=== PATIENT | female | born 1985 | race Caucasian/White ===

== ENCOUNTER 2020-02-09 10:48 | Emergency (ER) | payer MEDICAID ==
[~2020-02-09] VITALS: Ht 167.6 cm; Wt 61.0 kg
[2020-02-09 11:03] VITALS: BP 105/36
== END 2020-02-09 12:58 | disposition home or self-care (01) ==
LOC: ER 10:48
DX: S52.511A Displaced fracture of right radial styloid process, initial encounter for closed fracture (principal); Z98.890 Other specified postprocedural states; W01.0XXA Fall on same level from slipping, tripping and stumbling without subsequent striking against object, initial encounter; Y93.89 Activity, other specified; Y92.018 Other place in single-family (private) house as the place of occurrence of the external cause
CPT/HCPCS: 29125; 73110; 99283; A4565

== ENCOUNTER 2020-08-07 19:22 | Emergency (ER) | payer MEDICAID ==
[~2020-08-07] VITALS: Ht 167.6 cm; Wt 64.0 kg
[2020-08-07] MEDS ORDERED: SODIUM CHLORIDE 0.9% 1,000 ML IV ONE (20:00)
[2020-08-07 20:22] LABS: BASOPHILS % 0.4 % (0.0-2.0); EOSINOPHILS % 0.9 % (0.0-5.0); HEMATOCRIT. 37.4 % (36.0-48.0); HEMOGLOBIN. 12.6 g/dL (12.0-16.0); LYMPHOCYTES % 29.8 % (20.0-50.0); MEAN CORPUSCULAR HEMOGLOBIN 33.9 pg (28.0-32.0); MEAN CORPUSCULAR VOLUME 100.9 fL (81.0-99.0); MEAN PLATELET VOLUME 7.6 fl (7.4-10.4); MONOCYTES % 4.3 % (2.0-8.0); NEUTROPHILS % 64.6 % (40.0-76.0); PLATELET 211 x1000/uL (130-400); RED CELL DISTRIBUTION WIDTH 17.1 % (11.6-14.6)
[2020-08-07 20:31] LABS: CHLORIDE 111 mEq/L (98-107); HCG SCREEN NEGATIVE
[2020-08-07 20:42] LABS: ETHANOL BLOOD 297 mg/dL
[2020-08-07 20:50] VITALS: BP 112/78
[2020-08-07 21:00] LABS: CLARITY URINE CLEAR (CLEAR); COLOR URINE YELLOW (YELLOW); KETONES URINE NEGATIVE (NEGATIVE); LEUKOCYTE ESTERASE URINE NEGATIVE (NEGATIVE); NITRITE URINE NEGATIVE (NEGATIVE); OCCULT BLOOD URINE 3+ (NEGATIVE); PROTEIN URINE NEGATIVE (NEGATIVE); SPECIFIC GRAVITY URINE 1.006 (1.005-1.030); UROBILINOGEN URINE 0.2 E.U./dL (0.2-1.0)
[2020-08-07 21:15] LABS: *AMPHETAMINES SCREEN URINE NEGATIVE (NEGATIVE); *BARBITURATES SCREEN URINE NEGATIVE (NEGATIVE); *BENZODIAZEPINES SCREEN URINE NEGATIVE (NEGATIVE); *COCAINE SCREEN URINE NEGATIVE (NEGATIVE); METHADONE URINE SCREEN NEGATIVE (NEGATIVE); OPIATES URINE SCREEN NEGATIVE (NEGATIVE); PHENCYCLIDINE URINE SCREEN NEGATIVE (NEGATIVE)
[2020-08-07 21:16] LABS: CANNABINOID URINE SCREEN NEGATIVE (NEGATIVE)
== END 2020-08-07 20:50 | disposition left against medical advice (07) ==
LOC: ER 19:32
DX: R55 Syncope and collapse (principal); R41.82 Altered mental status, unspecified; R21 Rash and other nonspecific skin eruption; F10.129 Alcohol abuse with intoxication, unspecified; Y90.9 Presence of alcohol in blood, level not specified
CPT/HCPCS: 36415; 80053; 80305; 80320; 81003; 84484; 84703; 85025; 85379; 99283; J7030; G0480

== ENCOUNTER 2020-08-20 10:52 | Emergency (ER) | payer MEDICAID ==
[~2020-08-20] VITALS: Ht 165.1 cm; Wt 55.0 kg
[2020-08-20] MEDS ORDERED: ACETAMINOPHEN 325MG TABLET PO STA (11:31)
[2020-08-20] MEDS ORDERED: SODIUM CHLORIDE 0.9% 1,000 ML IV ONE ×2 (11:45→13:15)
[2020-08-20 11:48] LABS: BASOPHILS % 1.5 % (0.0-2.0); EOSINOPHILS % 1.2 % (0.0-5.0); HEMATOCRIT. 32.7 % (36.0-48.0); HEMOGLOBIN. 11.2 g/dL (12.0-16.0); LYMPHOCYTES % 28.4 % (20.0-50.0); MEAN PLATELET VOLUME 7.4 fl (7.4-10.4); MONOCYTES % 7.3 % (2.0-8.0); NEUTROPHILS % 61.6 % (40.0-76.0); PLATELET 324 x1000/uL (130-400); RED CELL DISTRIBUTION WIDTH 15.5 % (11.6-14.6)
[2020-08-20 11:55] LABS: CHLORIDE 109 mEq/L (98-107)
[2020-08-20 12:04] LABS: CLARITY URINE CLEAR (CLEAR); COLOR URINE YELLOW (YELLOW); KETONES URINE NEGATIVE (NEGATIVE); LEUKOCYTE ESTERASE URINE NEGATIVE (NEGATIVE); NITRITE URINE NEGATIVE (NEGATIVE); OCCULT BLOOD URINE 2+ (NEGATIVE); PROTEIN URINE TRACE (NEGATIVE); SPECIFIC GRAVITY URINE 1.011 (1.005-1.030); UROBILINOGEN URINE 0.2 E.U./dL (0.2-1.0)
[2020-08-20 12:05] LABS: B-HCG QUANTITATIVE < 1 mIU/mL (<3)
[2020-08-20] MEDS ORDERED: IBUP-2028 MT (14:17)
[2020-08-20] MEDS ORDERED: NITR-87 MT (14:17)
[2020-08-20 15:15] VITALS: BP 115/82
== END 2020-08-20 15:19 | disposition home or self-care (01) ==
LOC: ER 11:00
DX: N39.0 Urinary tract infection, site not specified (principal); R53.1 Weakness; Z63.4 Disappearance and death of family member; Z87.59 Personal history of other complications of pregnancy, childbirth and the puerperium
CPT/HCPCS: 36415; 76830; 76856; 80053; 81003; 84702; 85025; 86850; 86900; 86901; 93005; 96360; 96361; 99285; J7030

== ENCOUNTER 2020-08-26 08:32 | Emergency (ER) | payer MEDICAID ==
[~2020-08-26] VITALS: Ht 167.6 cm; Wt 68.0 kg
[~2020-08-26 08:32] MED LIST: IBUP-2028 MT; NITR-87 MT
[2020-08-26] MEDS ORDERED: ONDANSETRON HCL 4MG/2ML INJ IV STA (08:55)
[2020-08-26] MEDS ORDERED: SODIUM CHLORIDE 0.9% 1,000 ML IV ONE ×2 (09:00→12:00)
[2020-08-26 09:22] LABS: BASOPHILS % 0.3 % (0.0-2.0); EOSINOPHILS % 1.1 % (0.0-5.0); HEMOGLOBIN. 11.4 g/dL (12.0-16.0); LYMPHOCYTES % 28.8 % (20.0-50.0); MEAN CORPUSCULAR HEMOGLOBIN 34.1 pg (28.0-32.0); MEAN CORPUSCULAR VOLUME 101.7 fL (81.0-99.0); MEAN PLATELET VOLUME 7.4 fl (7.4-10.4); MONOCYTES % 4.4 % (2.0-8.0); NEUTROPHILS % 65.4 % (40.0-76.0); PLATELET 239 x1000/uL (130-400); RED BLOOD CELL COUNT 3.34 mill/uL (4.2-5.4); RED CELL DISTRIBUTION WIDTH 14.8 % (11.6-14.6)
[2020-08-26 09:23] LABS: CLARITY URINE CLEAR (CLEAR); COLOR URINE DARK YELLOW (YELLOW); KETONES URINE TRACE (NEGATIVE); LEUKOCYTE ESTERASE URINE TRACE (NEGATIVE); NITRITE URINE NEGATIVE (NEGATIVE); OCCULT BLOOD URINE 3+ (NEGATIVE); PROTEIN URINE 2+ (NEGATIVE); SPECIFIC GRAVITY URINE 1.026 (1.005-1.030)
[2020-08-26 09:28] LABS: CHLORIDE 107 mEq/L (98-107)
[2020-08-26 09:33] LABS: ETHANOL BLOOD 217 mg/dL
[2020-08-26 10:05] LABS: *AMPHETAMINES SCREEN URINE NEGATIVE (NEGATIVE); *BARBITURATES SCREEN URINE NEGATIVE (NEGATIVE); *BENZODIAZEPINES SCREEN URINE NEGATIVE (NEGATIVE); *COCAINE SCREEN URINE NEGATIVE (NEGATIVE); METHADONE URINE SCREEN NEGATIVE (NEGATIVE); OPIATES URINE SCREEN NEGATIVE (NEGATIVE)
[2020-08-26 10:06] LABS: CANNABINOID URINE SCREEN NEGATIVE (NEGATIVE); PHENCYCLIDINE URINE SCREEN NEGATIVE (NEGATIVE)
[2020-08-26] MEDS ORDERED: POTASSIUM CHLORIDE 20MEQ TABLET SR PO ONE (10:45)
[2020-08-26 13:15] VITALS: BP 100/50
== END 2020-08-26 13:16 | disposition home or self-care (01) ==
LOC: ER 08:36
DX: R55 Syncope and collapse (principal); E87.6 Hypokalemia; F17.290 Nicotine dependence, other tobacco product, uncomplicated
CPT/HCPCS: 36415; 80053; 80305; 80320; 81003; 85025; 93005; 96361; 96374; 99284; J2405; J7030; G0480

== ENCOUNTER 2020-10-12 21:48 | Emergency (ER) | payer MEDICAID ==
[~2020-10-12] VITALS: Ht 172.7 cm; Wt 59.0 kg
[~2020-10-12 21:48] MED LIST changes: +ACET650T37 MT; +CEPH500C2 MT; +IBUP-2029 MT; +POTA-9 MT
[2020-10-13] MEDS ORDERED: IBUP-2029 MT (03:52)
[2020-10-13] MEDS ORDERED: KETOROLAC 60MG/2ML VIAL IM ONE (04:00)
[2020-10-13 04:27] VITALS: BP 128/80
== END 2020-10-13 04:35 | disposition home or self-care (01) ==
LOC: ER 21:48
DX: S22.31XA Fracture of one rib, right side, initial encounter for closed fracture (principal); G62.9 Polyneuropathy, unspecified; X58.XXXA Exposure to other specified factors, initial encounter; Y93.89 Activity, other specified; Y92.488 Other paved roadways as the place of occurrence of the external cause
CPT/HCPCS: 96372; 99283; J1885

== ENCOUNTER 2021-11-07 10:08 | Emergency (ER) | payer MEDICAID ==
[~2021-11-07] VITALS: Ht 167.6 cm; Wt 57.0 kg
[~2021-11-07 10:08] MED LIST changes: +ACET-3163 MT; -ACET650T37 MT; +POTA-202 MT; -POTA-9 MT
[2021-11-07] MEDS ORDERED: IBUPROFEN 600MG TABLET PO ONE (10:45)
[2021-11-07 12:27] VITALS: BP 147/81
[2021-11-07] MEDS ORDERED: IBUP-2029 MT (14:25)
== END 2021-11-07 15:16 | disposition home or self-care (01) ==
LOC: ER 10:08
DX: S09.8XXA Other specified injuries of head, initial encounter (principal); S05.11XA Contusion of eyeball and orbital tissues, right eye, initial encounter; Y04.0XXA Assault by unarmed brawl or fight, initial encounter; Y93.89 Activity, other specified; Y92.488 Other paved roadways as the place of occurrence of the external cause
CPT/HCPCS: 70486; 99284

== ENCOUNTER 2021-12-26 16:59 | Emergency (ER) | payer MEDICAID ==
[~2021-12-26] VITALS: Ht 162.6 cm; Wt 54.0 kg
[2021-12-26 17:04] VITALS: BP 98/46
== END 2021-12-26 18:01 | disposition left against medical advice (07) ==
LOC: ER 16:59
DX: S05.12XA Contusion of eyeball and orbital tissues, left eye, initial encounter (principal); H11.32 Conjunctival hemorrhage, left eye; Y04.2XXA Assault by strike against or bumped into by another person, initial encounter; Y93.89 Activity, other specified; Y92.89 Other specified places as the place of occurrence of the external cause
CPT/HCPCS: 99283

== ENCOUNTER 2021-12-27 09:19 | Emergency (ER) | payer MEDICAID ==
[~2021-12-27] VITALS: Ht 157.5 cm; Wt 56.0 kg
[2021-12-27 09:22] VITALS: BP 110/70
== END 2021-12-27 11:00 | disposition left against medical advice (07) ==
LOC: ER 09:19
DX: Z13.9 Encounter for screening, unspecified (principal)
CPT/HCPCS: 99281

== ENCOUNTER 2022-01-03 12:20 | Emergency (ER) | payer MEDICAID ==
[~2022-01-03] VITALS: Ht 165.1 cm; Wt 73.0 kg
[2022-01-03 12:26] VITALS: BP 99/57
== END 2022-01-03 12:57 | disposition left against medical advice (07) ==
LOC: ER 12:46
DX: H57.12 Ocular pain, left eye (principal); S09.90XA Unspecified injury of head, initial encounter; Z79.899 Other long term (current) drug therapy; Y04.0XXA Assault by unarmed brawl or fight, initial encounter; Y93.89 Activity, other specified; Y92.89 Other specified places as the place of occurrence of the external cause; Y99.8 Other external cause status
CPT/HCPCS: 99283

== ENCOUNTER 2022-01-03 14:34 | Emergency (ER) | payer MEDICAID ==
[~2022-01-03] VITALS: Ht 170.2 cm; Wt 66.0 kg
[2022-01-03 14:41] VITALS: BP 136/84
== END 2022-01-03 17:13 | disposition left against medical advice (07) ==
LOC: ER 14:34
DX: H57.10 Ocular pain, unspecified eye (principal); Y04.0XXA Assault by unarmed brawl or fight, initial encounter; Y93.89 Activity, other specified; Y92.89 Other specified places as the place of occurrence of the external cause; Y99.8 Other external cause status
CPT/HCPCS: 81025; 99283

== ENCOUNTER 2022-01-24 16:59 | Emergency (ER) | payer MEDICAID ==
[~2022-01-24] VITALS: Ht 170.2 cm; Wt 59.0 kg
[2022-01-24 17:07] VITALS: BP 90/62
== END 2022-01-24 17:19 | disposition left against medical advice (07) ==
LOC: ER 16:59
DX: Z53.21 Procedure and treatment not carried out due to patient leaving prior to being seen by health care provider (principal)

== ENCOUNTER 2022-02-24 10:53 | Emergency (ER) | payer MEDICAID ==
[~2022-02-24] VITALS: Ht 162.6 cm; Wt 59.0 kg
[2022-02-24 10:58] VITALS: BP 98/64
[2022-02-24] MEDS ORDERED: KETOROLAC 60MG/2ML VIAL IM ONE (15:45)
== END 2022-02-24 16:33 | disposition left against medical advice (07) ==
LOC: ER 10:53
DX: Z53.21 Procedure and treatment not carried out due to patient leaving prior to being seen by health care provider (principal)
CPT/HCPCS: J1885

== ENCOUNTER 2022-03-30 01:18 | Emergency (ER) | payer MEDICAID ==
[~2022-03-30] VITALS: Ht 167.6 cm; Wt 64.0 kg
[2022-03-30] MEDS ORDERED: IBUPROFEN 600MG TABLET PO ONE (02:45)
[2022-03-30 03:02] VITALS: BP 136/94
== END 2022-03-30 07:05 | disposition home or self-care (01) ==
LOC: ER 01:18
DX: S02.2XXA Fracture of nasal bones, initial encounter for closed fracture (principal); I10 Essential (primary) hypertension; E11.9 Type 2 diabetes mellitus without complications; S06.9XAA Unspecified intracranial injury with loss of consciousness status unknown, initial encounter; Y04.0XXA Assault by unarmed brawl or fight, initial encounter; Y93.89 Activity, other specified; Y92.89 Other specified places as the place of occurrence of the external cause; Y99.8 Other external cause status
CPT/HCPCS: 70486; 81025; 99284

== ENCOUNTER 2022-06-10 15:44 | Emergency (ER) | payer MEDICAID ==
[~2022-06-10] VITALS: Ht 167.6 cm; Wt 62.0 kg
[2022-06-10 15:46] VITALS: BP 101/61
[2022-06-10] MEDS ORDERED: IBUPROFEN 600MG TABLET PO ONE (18:45)
== END 2022-06-10 20:33 | disposition left against medical advice (07) ==
LOC: ER 15:58
DX: R68.84 Jaw pain (principal); I10 Essential (primary) hypertension; E11.9 Type 2 diabetes mellitus without complications; Y04.0XXA Assault by unarmed brawl or fight, initial encounter; Y93.89 Activity, other specified; Y92.89 Other specified places as the place of occurrence of the external cause; Y99.8 Other external cause status
CPT/HCPCS: 99283

== ENCOUNTER 2022-06-11 10:14 | Emergency (ER) | payer MEDICAID ==
[~2022-06-11] VITALS: Ht 165.1 cm; Wt 59.0 kg
[2022-06-11 10:25] VITALS: BP 106/79
[2022-06-11] MEDS ORDERED: ACETAMINOPHEN 325MG TABLET PO STA (10:57)
== END 2022-06-11 11:48 | disposition left against medical advice (07) ==
LOC: ER 10:14
DX: R07.81 Pleurodynia (principal); R51.9 Headache, unspecified; E11.9 Type 2 diabetes mellitus without complications; I10 Essential (primary) hypertension; Y04.0XXA Assault by unarmed brawl or fight, initial encounter; Y93.89 Activity, other specified; Y92.89 Other specified places as the place of occurrence of the external cause; Y99.8 Other external cause status
CPT/HCPCS: 99283

== ENCOUNTER 2022-07-28 20:12 | Emergency (ER) | payer MEDICAID ==
[~2022-07-28] VITALS: Ht 129.5 cm; Wt 30.8 kg
[2022-07-28] MEDS ORDERED: ACETAMINOPHEN 325MG TABLET PO STA (20:26)
[2022-07-28] MEDS ORDERED: ONDANSETRON 4MG ODT PO STA (20:26)
[2022-07-28 20:54] LABS: BASOPHILS % 1.1 % (0.0-2.0); EOSINOPHILS % 0.7 % (0.0-5.0); HEMOGLOBIN. 10.9 g/dL (12.0-16.0); LYMPHOCYTES % 48.1 % (20.0-50.0); MEAN CORPUSCULAR HEMOGLOBIN 31.9 pg (28.0-32.0); MEAN CORPUSCULAR VOLUME 96.2 fL (81.0-99.0); MEAN PLATELET VOLUME 7.4 fl (7.4-10.4); MONOCYTES % 10.7 % (2.0-8.0); NEUTROPHILS % 39.4 % (40.0-76.0); PLATELET 193 x1000/uL (130-400); RED BLOOD CELL COUNT 3.43 mill/uL (4.2-5.4); RED CELL DISTRIBUTION WIDTH 17.1 % (11.6-14.6)
[2022-07-28 21:00] LABS: CHLORIDE 103 mEq/L (98-107)
[2022-07-28 21:02] LABS: INR 1.1; PROTHROMBIN TIME 12.1 sec (9.6-11.0)
[2022-07-28 21:11] LABS: HCG SCREEN NEGATIVE
[2022-07-28 21:23] LABS: ETHANOL BLOOD 421 mg/dL
[2022-07-29] MEDS ORDERED: NAPR-1074 MT (01:02)
[2022-07-29] MEDS ORDERED: ACETAMINOPHEN 325MG TABLET PO NR (03:30)
[2022-07-29] MEDS ORDERED: ONDANSETRON 4MG ODT PO NR (03:30)
[2022-07-29 05:23] LABS: CLARITY URINE CLOUDY (CLEAR); COLOR URINE YELLOW (YELLOW); KETONES URINE TRACE (NEGATIVE); LEUKOCYTE ESTERASE URINE 2+ (NEGATIVE); NITRITE URINE NEGATIVE (NEGATIVE); OCCULT BLOOD URINE NEGATIVE (NEGATIVE); PH URINE 5.5 (4.5-8.0); PROTEIN URINE 1+ (NEGATIVE); SPECIFIC GRAVITY URINE 1.019 (1.005-1.030)
[2022-07-29 05:44] LABS: *AMPHETAMINES SCREEN URINE NEGATIVE (NEGATIVE); *BARBITURATES SCREEN URINE NEGATIVE (NEGATIVE); *BENZODIAZEPINES SCREEN URINE NEGATIVE (NEGATIVE); *COCAINE SCREEN URINE NEGATIVE (NEGATIVE); CANNABINOID URINE SCREEN NEGATIVE (NEGATIVE); METHADONE URINE SCREEN NEGATIVE (NEGATIVE); OPIATES URINE SCREEN NEGATIVE (NEGATIVE); PHENCYCLIDINE URINE SCREEN NEGATIVE (NEGATIVE)
[2022-07-29 10:35] VITALS: BP 134/78
== END 2022-07-29 10:38 | disposition home or self-care (01) ==
LOC: ER 20:12
DX: S00.83XA Contusion of other part of head, initial encounter (principal); F10.129 Alcohol abuse with intoxication, unspecified; R74.01 Elevation of levels of liver transaminase levels; R10.32 Left lower quadrant pain; E11.9 Type 2 diabetes mellitus without complications; I10 Essential (primary) hypertension; Z59.00 Homelessness unspecified; Z79.899 Other long term (current) drug therapy; Y04.2XXA Assault by strike against or bumped into by another person, initial encounter; Y93.89 Activity, other specified; Y92.89 Other specified places as the place of occurrence of the external cause; Y99.8 Other external cause status; Y90.8 Blood alcohol level of 240 mg/100 ml or more
CPT/HCPCS: 36415; 74176; 80053; 80305; 80320; 81003; 83690; 84703; 85025; 85610; 99284; Q0162; G0480

== ENCOUNTER 2022-08-05 20:59 | Emergency (ER) | payer MEDICAID ==
[~2022-08-05] VITALS: Ht 162.6 cm; Wt 68.0 kg
[~2022-08-05 20:59] MED LIST changes: +NAPR-1074 MT
[2022-08-05 21:00] VITALS: BP 109/77
== END 2022-08-05 21:35 | disposition left against medical advice (07) ==
LOC: ER 20:59
DX: Z53.21 Procedure and treatment not carried out due to patient leaving prior to being seen by health care provider (principal)
CPT/HCPCS: 99281

== ENCOUNTER 2022-08-06 00:24 | Emergency (ER) | payer MEDICAID ==
[~2022-08-06] VITALS: Ht 162.6 cm; Wt 64.0 kg
[2022-08-06 00:27] VITALS: BP 112/76
== END 2022-08-06 02:23 | disposition left against medical advice (07) ==
LOC: ER 00:24
DX: Z53.21 Procedure and treatment not carried out due to patient leaving prior to being seen by health care provider (principal)
CPT/HCPCS: 99281

== ENCOUNTER 2022-08-15 14:23 | Emergency (ER) | payer MEDICAID ==
[~2022-08-15] VITALS: Ht 165.1 cm; Wt 59.0 kg
[2022-08-15 14:30] VITALS: BP 95/68
== END 2022-08-15 15:10 | disposition left against medical advice (07) ==
LOC: ER 14:54
DX: Z53.21 Procedure and treatment not carried out due to patient leaving prior to being seen by health care provider (principal)
CPT/HCPCS: 99281

== ENCOUNTER 2022-08-29 21:46 | Emergency (ER) | payer MEDICAID ==
[~2022-08-29] VITALS: Ht 160 cm; Wt 55.0 kg
[2022-08-29 21:50] VITALS: O2SAT 100
[2022-08-30 01:38] VITALS: TEMP 97.8
[2022-08-30] MEDS ORDERED: ONDANSETRON HCL 4MG/2ML INJ IV ONE (01:45)
[2022-08-30] MEDS ORDERED: SODIUM CHLORIDE 0.9% 1,000 ML IV ONE (01:45)
[2022-08-30] MEDS ORDERED: FAMOTIDINE 20MG/2ML VIAL IV ONE (01:45)
[2022-08-30 02:15] LABS: BASOPHILS % 0.2 % (0.0-2.0); CLARITY URINE CLEAR (CLEAR); COLOR URINE YELLOW (YELLOW); EOSINOPHILS % 2.5 % (0.0-5.0); HEMATOCRIT. 33.7 % (36.0-48.0); HEMOGLOBIN. 11.4 g/dL (12.0-16.0); KETONES URINE NEGATIVE (NEGATIVE); LEUKOCYTE ESTERASE URINE TRACE (NEGATIVE); LYMPHOCYTES % 43.5 % (20.0-50.0); MEAN CORPUSCULAR HEMOGLOBIN 32.7 pg (28.0-32.0); MEAN CORPUSCULAR VOLUME 96.9 fL (81.0-99.0); MEAN PLATELET VOLUME 7.5 fl (7.4-10.4); MONOCYTES % 6.6 % (2.0-8.0); NEUTROPHILS % 47.2 % (40.0-76.0); NITRITE URINE NEGATIVE (NEGATIVE); OCCULT BLOOD URINE 1+ (NEGATIVE); PLATELET 190 x1000/uL (130-400); PROTEIN URINE NEGATIVE (NEGATIVE); RED BLOOD CELL COUNT 3.48 mill/uL (4.2-5.4); RED CELL DISTRIBUTION WIDTH 17.5 % (11.6-14.6); SPECIFIC GRAVITY URINE 1.009 (1.005-1.030)
[2022-08-30 02:21] LABS: CHLORIDE 103 mEq/L (98-107)
[2022-08-30 02:33] LABS: HCG SCREEN NEGATIVE
[2022-08-30 02:49] LABS: INR 1.1; PROTHROMBIN TIME 11.6 sec (9.6-11.0)
[2022-08-30] MEDS ORDERED: KETOROLAC 15MG/ML VIAL IV ONE (03:00)
[2022-08-30 07:23] VITALS: BP 126/71; PULSE 79; RESP 18
== END 2022-08-30 07:28 | disposition home or self-care (01) ==
LOC: ER 21:46
DX: R10.13 Epigastric pain (principal); F10.229 Alcohol dependence with intoxication, unspecified; E11.9 Type 2 diabetes mellitus without complications; I10 Essential (primary) hypertension; Z87.440 Personal history of urinary (tract) infections; Y90.0 Blood alcohol level of less than 20 mg/100 ml
CPT/HCPCS: 99285; 80053; 81003; 84703; 83690; 85025; 85610; 84484; 36415; 74177; 96374; 96375; Q9967; J3490; J1885; J2405; J7030; Z7610 ×4

== ENCOUNTER 2022-08-30 15:26 | Emergency (ER) | payer MEDICAID ==
[2022-08-30 15:31] VITALS: BP 158/92; PULSE 80; RESP 16; TEMP 98.5
== END 2022-08-30 15:39 | disposition left against medical advice (07) ==
LOC: ER 15:37
DX: Z53.21 Procedure and treatment not carried out due to patient leaving prior to being seen by health care provider (principal)
CPT/HCPCS: 99281

== ENCOUNTER 2022-10-01 13:43 | Emergency (ER) | payer MEDICAID ==
[~2022-10-01] VITALS: Ht 167.6 cm; Wt 59.0 kg
[2022-10-01 13:50] VITALS: BP 90/50; PULSE 88; RESP 16; TEMP 98.1; O2SAT 99
[2022-10-01] MEDS ORDERED: ACETAMINOPHEN 325MG TABLET PO ONE (14:15)
== END 2022-10-01 15:02 | disposition home or self-care (01) ==
LOC: ER 13:45
DX: R51.9 Headache, unspecified (principal); I10 Essential (primary) hypertension; E11.9 Type 2 diabetes mellitus without complications; Z79.899 Other long term (current) drug therapy; Y04.0XXA Assault by unarmed brawl or fight, initial encounter; Y93.89 Activity, other specified; Y92.89 Other specified places as the place of occurrence of the external cause; Y99.8 Other external cause status
CPT/HCPCS: 99283

== ENCOUNTER 2022-10-08 23:08 | Emergency (ER) | payer MEDICAID ==
[~2022-10-08] VITALS: Ht 160 cm; Wt 50.0 kg
[2022-10-08 23:09] VITALS: BP 104/75; PULSE 85; RESP 18; TEMP 97.1; O2SAT 97
== END 2022-10-09 00:11 | disposition home or self-care (01) ==
LOC: ER 23:08
DX: Z00.00 Encounter for general adult medical examination without abnormal findings (principal); I10 Essential (primary) hypertension; Z79.899 Other long term (current) drug therapy
CPT/HCPCS: 99283

== ENCOUNTER 2022-11-04 19:07 | Emergency (ER) | payer MEDICAID ==
[~2022-11-04] VITALS: Ht 165.1 cm; Wt 60.0 kg
[2022-11-04 19:16] VITALS: BP 100/84; PULSE 104; RESP 16; TEMP 97.6; O2SAT 98
[2022-11-04] MEDS ORDERED: TOPUD MT (23:50)
== END 2022-11-04 21:42 | disposition home or self-care (01) ==
LOC: ER 19:07
DX: S00.83XA Contusion of other part of head, initial encounter (principal); F10.129 Alcohol abuse with intoxication, unspecified; I10 Essential (primary) hypertension; E11.9 Type 2 diabetes mellitus without complications; Y04.0XXA Assault by unarmed brawl or fight, initial encounter; Y93.89 Activity, other specified; Y92.89 Other specified places as the place of occurrence of the external cause; Y99.8 Other external cause status; Y90.9 Presence of alcohol in blood, level not specified
CPT/HCPCS: 70486; 99284

== ENCOUNTER 2022-11-04 22:13 | Emergency (ER) | payer MEDICAID ==
[~2022-11-04] VITALS: Ht 165.1 cm; Wt 55.0 kg
[2022-11-04 22:15] VITALS: O2SAT 98
[2022-11-04] MEDS ORDERED: TOPUD MT (23:50)
[2022-11-05] MEDS ORDERED: KETOROLAC 30MG/ML VIAL IM ONE
[2022-11-05 00:05] VITALS: BP 109/78; PULSE 74; RESP 16; TEMP 97.3
[2022-11-06] MEDS ORDERED: GABA100C MT (13:06)
== END 2022-11-05 00:05 | disposition home or self-care (01) ==
LOC: ER 22:13
DX: R51.9 Headache, unspecified (principal); E11.9 Type 2 diabetes mellitus without complications; F10.20 Alcohol dependence, uncomplicated; Z80.9 Family history of malignant neoplasm, unspecified; Y90.9 Presence of alcohol in blood, level not specified
CPT/HCPCS: 99283; 96372; J1885

== ENCOUNTER 2022-11-06 10:59 | Emergency (ER) | payer MEDICAID ==
[~2022-11-06] VITALS: Ht 167.6 cm; Wt 61.0 kg
[~2022-11-06 10:59] MED LIST changes: +TOPUD MT
[2022-11-06 11:04] VITALS: BP 110/70; PULSE 88; RESP 20; TEMP 98.6; O2SAT 94
[2022-11-06] MEDS ORDERED: GABA100C MT (13:06)
== END 2022-11-06 12:27 | disposition home or self-care (01) ==
LOC: ER 10:59
DX: R10.9 Unspecified abdominal pain (principal); E11.9 Type 2 diabetes mellitus without complications; Z79.899 Other long term (current) drug therapy
CPT/HCPCS: 99283

== ENCOUNTER 2022-11-06 12:57 | Emergency (ER) | payer MEDICAID ==
[~2022-11-06] VITALS: Ht 162.6 cm; Wt 63.0 kg
[2022-11-06 13:00] VITALS: BP 146/96; PULSE 102; RESP 18; O2SAT 98
[2022-11-06] MEDS ORDERED: GABA100C MT (13:06)
[2022-11-06 13:15] VITALS: TEMP 97.9
[2022-11-06] MEDS ORDERED: ACETAMINOPHEN 325MG TABLET PO ONE (13:15)
== END 2022-11-06 13:25 | disposition home or self-care (01) ==
LOC: ER 12:57
DX: G62.9 Polyneuropathy, unspecified (principal); Z79.899 Other long term (current) drug therapy
CPT/HCPCS: 99283

== ENCOUNTER 2022-11-11 15:55 | Emergency (ER) | payer MEDICAID ==
[~2022-11-11] VITALS: Ht 162.6 cm; Wt 45.0 kg
[~2022-11-11 15:55] MED LIST changes: +GABA100C MT
[2022-11-11 15:56] VITALS: BP 106/68; PULSE 90; RESP 18; TEMP 98.6; O2SAT 100
[2022-11-11] MEDS ORDERED: KETOROLAC 30MG/ML VIAL IM NR (16:15)
== END 2022-11-11 18:38 | disposition left against medical advice (07) ==
LOC: ER 15:58
DX: R10.30 Lower abdominal pain, unspecified (principal); E11.9 Type 2 diabetes mellitus without complications; Z79.899 Other long term (current) drug therapy
CPT/HCPCS: 99283

== ENCOUNTER 2022-12-11 12:48 | Emergency (ER) | payer MEDICAID ==
[~2022-12-11] VITALS: Ht 172.7 cm; Wt 63.0 kg
[2022-12-11 13:03] VITALS: O2SAT 100
[2022-12-11] MEDS ORDERED: SODIUM CHLORIDE 0.9% 1,000 ML IV ONE ×2 (13:15→16:30)
[2022-12-11 14:41] LABS: HCG SCREEN NEGATIVE
[2022-12-11 14:46] LABS: CHLORIDE 105 mEq/L (98-107); INDEX HEMOLYSI 1 (1-3); INDEX ICTERIC 1 (1-4); INDEX LIPEMIC 1 (1-3); POTASSIUM 3.2 mEq/L (3.5-5.1); SODIUM 143 mEq/L (136-145)
[2022-12-11 14:53] LABS: AMMONIA 51 uMol/L (<32)
[2022-12-11 14:55] LABS: BASOPHILS % 0.6 % (0.0-2.0); EOSINOPHILS % 0.9 % (0.0-5.0); HEMATOCRIT. 32.3 % (36.0-48.0); LYMPHOCYTES % 29.4 % (20.0-50.0); MEAN CORPUSCULAR HEMOGLOBIN 33.9 pg (28.0-32.0); MEAN CORPUSCULAR VOLUME 99.8 fL (81.0-99.0); MEAN PLATELET VOLUME 7.7 fl (7.4-10.4); MONOCYTES % 5.9 % (2.0-8.0); NEUTROPHILS % 63.2 % (40.0-76.0); PLATELET 228 x1000/uL (130-400); RED BLOOD CELL COUNT 3.24 mill/uL (4.2-5.4); RED CELL DISTRIBUTION WIDTH 15.3 % (11.6-14.6); WHITE BLOOD COUNT 5.3 x1000/uL (4.5-11.0)
[2022-12-11 14:56] LABS: ACETAMINOPHEN <2 ug/mL ug/mL (10-30); ALANINE AMINOTRANSFERASE 121 IU/L (13-61); ALBUMIN 3.8 g/dL (3.4-5.0); ASPARTATE AMINOTRANSFERASE 372 IU/L (15-37); BILIRUBIN TOTAL 0.5 mg/dL (0.1-1.0); CALCIUM 8.3 mg/dL (8.5-10.1); CARBON DIOXIDE 24 mEq/L (21-32); CREATININE 0.5 mg/dL (0.6-1.3); GLUCOSE 63 mg/dL (70-105); PROTEIN TOTAL 8.5 g/dL (6.0-8.3); UREA NITROGEN BLOOD 7 mg/dL (7-21)
[2022-12-11 15:19] LABS: ETHANOL BLOOD 383 mg/dL (<10)
[2022-12-11 16:09] VITALS: BP 99/59; PULSE 98; RESP 16; TEMP 99
== END 2022-12-11 18:07 | disposition home or self-care (01) ==
LOC: ER 12:48
DX: T51.0X1A Toxic effect of ethanol, accidental (unintentional), initial encounter (principal); E11.9 Type 2 diabetes mellitus without complications; Z79.899 Other long term (current) drug therapy; Y92.9 Unspecified place or not applicable
CPT/HCPCS: 80053; 80307; 80329; 80320; 82140; 84703; 85025; 36415; 96360; 99283; J7030; G0480

== ENCOUNTER 2022-12-25 14:50 | Emergency (ER) | payer MEDICAID ==
[~2022-12-25] VITALS: Ht 162.6 cm; Wt 64.0 kg
[2022-12-25 14:56] VITALS: BP 100/69; PULSE 115; RESP 16; TEMP 98.7; O2SAT 98
[2022-12-25] MEDS ORDERED: ACETAMINOPHEN 325MG TABLET PO STA (15:05)
[2022-12-26] MEDS ORDERED: CEPH500T MT (05:58)
[2022-12-26] MEDS ORDERED: PYR200 MT (05:58)
== END 2022-12-25 17:11 | disposition left against medical advice (07) ==
LOC: ER 14:50
DX: R51.9 Headache, unspecified (principal); E11.9 Type 2 diabetes mellitus without complications
CPT/HCPCS: 99283

== ENCOUNTER 2022-12-25 21:38 | Emergency (ER) | payer MEDICAID ==
[~2022-12-25] VITALS: Ht 157.5 cm; Wt 68.0 kg
[2022-12-25 22:05] VITALS: O2SAT 100
[2022-12-25] MEDS ORDERED: ACETAMINOPHEN 325MG TABLET PO STA (22:18)
[2022-12-25] MEDS ORDERED: ONDANSETRON 4MG ODT PO ONE (22:30)
[2022-12-25 23:45] LABS: BASOPHILS % 0.8 % (0.0-2.0); DIFFERENTIAL COMMENT 0; EOSINOPHILS % 0.6 % (0.0-5.0); HEMATOCRIT. 34.5 % (36.0-48.0); HEMOGLOBIN. 11.6 g/dL (12.0-16.0); LYMPHOCYTES % 40.4 % (20.0-50.0); MEAN CORPUSCULAR HEMOGLOBIN 33.7 pg (28.0-32.0); MEAN CORPUSCULAR HGB CONC 33.5 g/dL (31.0-37.0); MEAN CORPUSCULAR VOLUME 100.5 fL (81.0-99.0); MEAN PLATELET VOLUME 8.2 fl (7.4-10.4); MONOCYTES % 6.8 % (2.0-8.0); NEUTROPHILS % 51.4 % (40.0-76.0); PLATELET 104 x1000/uL (130-400); RED BLOOD CELL COUNT 3.43 mill/uL (4.2-5.4); RED CELL DISTRIBUTION WIDTH 15.5 % (11.6-14.6); WHITE BLOOD COUNT 4.4 x1000/uL (4.5-11.0)
[2022-12-25 23:53] LABS: CHLORIDE 98 mEq/L (98-107); INDEX HEMOLYSI 1 (1-3); INDEX ICTERIC 1 (1-4); INDEX LIPEMIC 1 (1-3); POTASSIUM 3.3 mEq/L (3.5-5.1); SODIUM 136 mEq/L (136-145)
[2022-12-26 00:01] LABS: ALANINE AMINOTRANSFERASE 90 IU/L (13-61); ALBUMIN 4.3 g/dL (3.4-5.0); ASPARTATE AMINOTRANSFERASE 441 IU/L (15-37); BILIRUBIN TOTAL 0.9 mg/dL (0.1-1.0); CARBON DIOXIDE 26 mEq/L (21-32); CREATININE 0.5 mg/dL (0.6-1.3); GLUCOSE 87 mg/dL (70-105); PROTEIN TOTAL 9.6 g/dL (6.0-8.3); UREA NITROGEN BLOOD 6 mg/dL (7-21)
[2022-12-26 00:12] LABS: HCG SCREEN NEGATIVE
[2022-12-26 00:33] LABS: LACTIC ACID 2.8 mmol/L (0.4-2.0)
[2022-12-26 01:35] LABS: CLARITY URINE CLOUDY (CLEAR); COLOR URINE DARK YELLOW (YELLOW); GLUCOSE URINE NEGATIVE (NEGATIVE); KETONES URINE TRACE (NEGATIVE); LEUKOCYTE ESTERASE URINE TRACE (NEGATIVE); NITRITE URINE POSITIVE (NEGATIVE); OCCULT BLOOD URINE 3+ (NEGATIVE); PROTEIN URINE 3+ (NEGATIVE); SPECIFIC GRAVITY URINE 1.021 (1.005-1.030)
[2022-12-26] MEDS ORDERED: CEFTRIAXONE 2GM/50ML (ADDEASE) 50 ML IV NR (01:45)
[2022-12-26] MEDS ORDERED: ONDANSETRON 4MG ODT PO NR (01:45)
[2022-12-26] MEDS ORDERED: ACETAMINOPHEN 325MG TABLET PO NR (01:45)
[2022-12-26] MEDS ORDERED: SODIUM CHLORIDE 0.9% 1,000 ML IV ONE (01:45)
[2022-12-26] MEDS ORDERED: KETOROLAC 30MG/ML VIAL IV NR (01:46)
[2022-12-26] MEDS ORDERED: ONDANSETRON HCL 4MG/2ML INJ IV NR (01:46)
[2022-12-26 01:52] LABS: BACTERIA URINE TRACE; SQUAMOUS EPITHELIAL CELL URINE FEW /lpf (RARE/1+); WBC URINE 0-2 /hpf (0-2)
[2022-12-26] MEDS ORDERED: SODIUM CHLORIDE 0.9% 1,000 ML IV NR (02:00)
[2022-12-26 05:34] VITALS: BP 102/66; PULSE 78; RESP 16; TEMP 98.2
[2022-12-26] MEDS ORDERED: PYR200 MT (05:58)
[2022-12-26] MEDS ORDERED: CEPH500T MT (05:58)
== END 2022-12-26 06:11 | disposition home or self-care (01) ==
LOC: ER 21:38
DX: N39.0 Urinary tract infection, site not specified (principal); E11.9 Type 2 diabetes mellitus without complications; Z98.890 Other specified postprocedural states; Z79.899 Other long term (current) drug therapy
CPT/HCPCS: 99284; 96374; 96375; 80053; 81025; 84703; 83605 ×2; 83690; 85025; 36415; 81003; J0696; J1885; J2405

== ENCOUNTER 2023-02-08 07:41 | Emergency (ER) | payer MEDICAID ==
[~2023-02-08] VITALS: Ht 162.6 cm; Wt 63.0 kg
[~2023-02-08 07:41] MED LIST changes: +CEPH500T MT; +PYR200 MT
[2023-02-08 07:44] VITALS: BP 95/60; PULSE 68; RESP 17; TEMP 97.7; O2SAT 100
== END 2023-02-08 09:13 | disposition left against medical advice (07) ==
LOC: ER 07:56
DX: F10.129 Alcohol abuse with intoxication, unspecified (principal); E11.9 Type 2 diabetes mellitus without complications; Y90.9 Presence of alcohol in blood, level not specified
CPT/HCPCS: 99283

== ENCOUNTER 2023-03-20 11:28 | Emergency (ER) | payer MEDICAID ==
[~2023-03-20] VITALS: Ht 162.6 cm; Wt 65.0 kg
[2023-03-20 11:42] VITALS: BP 101/60; PULSE 89; RESP 16; TEMP 97.9; O2SAT 99
== END 2023-03-20 13:45 | disposition home or self-care (01) ==
LOC: ER 12:05
DX: F10.129 Alcohol abuse with intoxication, unspecified (principal); Z79.899 Other long term (current) drug therapy; Y90.9 Presence of alcohol in blood, level not specified
CPT/HCPCS: 99283

== ENCOUNTER 2023-09-22 11:06 | Emergency (ER) | payer MEDICAID ==
[~2023-09-22] VITALS: Ht 160 cm; Wt 67.0 kg
[~2023-09-22 11:06] MED LIST changes: -ACET-3163 MT; -CEPH500C2 MT; -CEPH500T MT; -IBUP-2028 MT; -NAPR-1074 MT; -NITR-87 MT; -POTA-202 MT; -PYR200 MT
[2023-09-22 11:09] VITALS: BP 134/72; PULSE 86; RESP 16; TEMP 97.7; O2SAT 98
== END 2023-09-22 13:20 | disposition left against medical advice (07) ==
LOC: ER 11:06
DX: M79.605 Pain in left leg (principal); M79.604 Pain in right leg; Z53.21 Procedure and treatment not carried out due to patient leaving prior to being seen by health care provider
CPT/HCPCS: 99281

== ENCOUNTER 2023-10-13 20:42 | Emergency (ER) | payer MEDICAID ==
[~2023-10-13] VITALS: Ht 157.5 cm; Wt 55.0 kg
[2023-10-13 20:49] VITALS: O2SAT 98
[2023-10-13 21:49] LABS: BASOPHILS % 0.3 % (0.0-2.0); EOSINOPHILS % 0.3 % (0.0-5.0); HEMATOCRIT. 23.6 % (36.0-48.0); HEMOGLOBIN. 7.8 g/dL (12.0-16.0); LYMPHOCYTES % 12.1 % (20.0-50.0); MEAN CORPUSCULAR HEMOGLOBIN 32.8 pg (28.0-32.0); MEAN CORPUSCULAR HGB CONC 33.1 g/dL (31.0-37.0); MEAN CORPUSCULAR VOLUME 98.8 fL (81.0-99.0); MEAN PLATELET VOLUME 8.8 fl (7.4-10.4); MONOCYTES % 7.9 % (2.0-8.0); NEUTROPHILS % 79.4 % (40.0-76.0); PLATELET 192 x1000/uL (130-400); RED BLOOD CELL COUNT 2.39 mill/uL (4.2-5.4); RED CELL DISTRIBUTION WIDTH 20.4 % (11.6-14.6); WHITE BLOOD COUNT 17.1 x1000/uL (4.5-11.0)
[2023-10-13 21:55] LABS: CHLORIDE 103 mEq/L (98-107); POTASSIUM 3.2 mEq/L (3.5-5.1); SODIUM 137 mEq/L (136-145)
[2023-10-13 21:56] LABS: CALCIUM 8.3 mg/dL (8.7-10.4); CARBON DIOXIDE 24 mEq/L (21-32)
[2023-10-13 21:59] LABS: HCG SCREEN NEGATIVE
[2023-10-13 22:01] LABS: GLUCOSE 94 mg/dL (70-105)
[2023-10-13 22:02] LABS: ETHANOL BLOOD 300 mg/dL (<10)
[2023-10-13 22:03] LABS: ALANINE AMINOTRANSFERASE 22 IU/L (10-49); ASPARTATE AMINOTRANSFERASE 104 IU/L (<34); BILIRUBIN DIRECT 6.2 mg/dL (<=3.0); INR 1.6; PROTHROMBIN TIME 17.3 sec (9.6-11.0)
[2023-10-13 22:04] LABS: BILIRUBIN TOTAL 8.7 mg/dL (0.1-1.0); PROTEIN TOTAL 7.3 g/dL (6.0-8.3)
[2023-10-13 22:09] LABS: CREATININE 0.4 mg/dL (0.6-1.0); UREA NITROGEN BLOOD < 5 mg/dL (9-23)
[2023-10-13 22:22] LABS: CLARITY URINE CLOUDY (CLEAR); COLOR URINE DARK YELLOW (YELLOW); GLUCOSE URINE NEGATIVE (NEGATIVE); KETONES URINE NEGATIVE (NEGATIVE); LEUKOCYTE ESTERASE URINE 1+ (NEGATIVE); NITRITE URINE POSITIVE (NEGATIVE); OCCULT BLOOD URINE NEGATIVE (NEGATIVE); PH URINE 6.5 (4.5-8.0); PROTEIN URINE 1+ (NEGATIVE); SPECIFIC GRAVITY URINE 1.014 (1.005-1.030)
[2023-10-13 22:46] LABS: BACTERIA URINE 2+; RBC URINE 0-2 /hpf (0-2); SQUAMOUS EPITHELIAL CELL URINE 1+ /lpf (RARE/1+); WBC URINE 0-2 /hpf (0-2)
[2023-10-14] MEDS: CEFTRIAXONE 2GM/50ML 50 ML IV ONE (00:14)
[2023-10-14 07:39] VITALS: TEMP 97.6
[2023-10-14 08:38] VITALS: BP 91/64; PULSE 101; RESP 22
== END 2023-10-14 10:52 | disposition left against medical advice (07) ==
LOC: ER 20:42 → UNDOADMIN 10-14 01:10 → 5WST 10-14 01:10 → EDBEDREQ 10-14 01:34 → EDBEDREQTM 10-14 01:34 → EDBEDREQDT 10-14 01:34 → UNDODISIN 10-14 10:51
DX: R18.8 Other ascites (principal); K74.60 Unspecified cirrhosis of liver; D64.9 Anemia, unspecified
CPT/HCPCS: 80076; 80048; 81003; 81025; 80320; 84703; 83880; 83690; 85025; 85610; 85730; 86850; 86900; 86901; 36415; 71045; 76700; 99285; 96365; J0696; Z7610 ×2; G0480